=== PATIENT | male | born 1960 | race Native Hawaiian/Other Pacific Islander ===

== ENCOUNTER 2021-02-02 15:18 | Emergency (ER) | payer OTHER ==
[~2021-02-02] VITALS: Ht 165.1 cm; Wt 98.0 kg
[2021-02-02 15:18] VITALS: BP 141/87; TEMP 97.7
[~2021-02-02 15:18] MED LIST: BENZTROPINE2 MG PO; CHOL100034 PO; CLON0.1T16 PO; CLON0.5T36 PO; CLON1TAB18 PO; CYAN10009 IM; DIVA500T2 PO; DIVALPROEX500 MG PO; EDLUAR10 MG PO; HALO5TAB10 PO; HALOPERIDOL2 MG PO; INVEGA SUS234 MG/1.5 IM; MAGNSUS68 PO; RISP1TAB PO; RISPERDAL3 MG PO; TRAZODONE HYDRO50 MG PO; TYLENOL325 MG PO; VRAYLAR1.5 MG PO
[2021-02-02 15:41] LABS: PLATELET COUNT 265 K/uL (142-355)
[2021-02-02 15:53] LABS: POTASSIUM 3.6 mmol/L (3.6-5.2)
[2021-02-03] MEDS ORDERED: LORA2INJ21 INJ (08:26)
[2021-02-03] MEDS ORDERED: HALO5INJ3 IM (08:27)
[2021-02-03] MEDS ORDERED: CARBAMAZEPIN200 M1 PO (08:28)
[2021-02-03] MEDS ORDERED: SCOP1.5D TD (08:29)
[2021-02-03] MEDS ORDERED: DIVALPROEX500 M1 PO (08:31)
[2021-02-03] MEDS ORDERED: OLANZAPINE10 M2 PO (08:32)
== END 2021-02-02 16:20 | disposition still patient (30) ==
LOC: ED 15:18
PROVIDERS: Emergency Medicine
DX: F20.89 Other schizophrenia (principal); R45.1 Restlessness and agitation; I10 Essential (primary) hypertension; R56.9 Unspecified convulsions; Z11.52 Encounter for screening for COVID-19; Z04.6 Encounter for general psychiatric examination, requested by authority; F17.210 Nicotine dependence, cigarettes, uncomplicated
CPT/HCPCS: 80053; 81000; 85027; 87635; 93005; 99283; U0003

== ENCOUNTER 2021-05-26 12:55 | Emergency (ER) | payer OTHER ==
[~2021-05-26] VITALS: Ht 167.6 cm; Wt 96.6 kg
[~2021-05-26 12:55] MED LIST changes: +CARBAMAZEPIN200 M1 PO; +CLOZ100T PO; +DIVALPROEX500 M1 PO; +HALO5INJ3 IM; +LORA2INJ21 INJ; +OLANZAPINE10 M2 PO; +SCOP1.5D TD
[2021-05-26 13:05] VITALS: BP 105/58; TEMP 97.2
[2021-05-26 13:30] LABS: PLATELET COUNT 262 K/uL (142-355)
[2021-05-26 13:40] LABS: POTASSIUM 4.1 mmol/L (3.6-5.2)
[2021-05-26] MEDS ORDERED: CYAN10009 IM (14:28)
[2021-05-26] MEDS ORDERED: RISPERDAL4 MG PO (14:32)
[2021-05-26] MEDS ORDERED: DIPH50IN INJ (14:36)
[2021-05-26] MEDS ORDERED: HALO5INJ3 IM (14:37)
[2021-05-26] MEDS ORDERED: LORA2INJ21 INJ (14:38)
[2021-05-26] MEDS ORDERED: MILK OF MA400 MG/5 M PO (14:39)
[2021-05-26] MEDS ORDERED: SCOP1.5D TD (14:40)
== END 2021-05-26 14:09 | disposition still patient (30) ==
LOC: ED 13:05
PROVIDERS: Emergency Medicine
DX: F20.89 Other schizophrenia (principal); R45.1 Restlessness and agitation; I10 Essential (primary) hypertension; Z11.52 Encounter for screening for COVID-19; Z04.6 Encounter for general psychiatric examination, requested by authority; F17.210 Nicotine dependence, cigarettes, uncomplicated
CPT/HCPCS: 80053; 85027; 87635; 93005; 99283; U0003

== ENCOUNTER 2022-07-13 15:15 | Emergency (ER) | payer OTHER ==
[~2022-07-13] VITALS: Ht 167.6 cm; Wt 110.2 kg
[2022-07-13 15:15] VITALS: BP 146/78; TEMP 98.1
[~2022-07-13 15:15] MED LIST changes: +ARIPIPRAZOLE10 MG PO; +DIPH50IN INJ; +DIVALPROEX250 MG PO; +MILK OF MA400 MG/5 M PO; +OLAN10INJ IM; +OXCARBAZEPIN300 MG PO; +RISPERDAL4 MG PO; +TRAZODONE HYDR100 MG PO; -TRAZODONE HYDRO50 MG PO
[2022-07-13 15:53] LABS: PLATELET COUNT 271 K/uL (142-355)
[2022-07-13 15:54] LABS: POTASSIUM 4.2 mmol/L (3.6-5.2)
[2022-07-13] MEDS ORDERED: HALDOL DECANOATE IM (17:04)
[2022-07-13] MEDS ORDERED: INGREZZA40 MG PO (17:05)
[2022-07-13] MEDS ORDERED: METO25TA4 PO (17:06)
[2022-07-13] MEDS ORDERED: K-TABS10 MEQ PO (17:06)
[2022-07-13] MEDS ORDERED: CLON1TAB18 PO (17:11)
[2022-07-13] MEDS ORDERED: DIVALPROEX500 MG PO (17:12)
[2022-07-13] MEDS ORDERED: MEDR10TA4 PO (17:13)
[2022-07-13] MEDS ORDERED: OXCARBAZEPIN600 MG PO (17:14)
[2022-07-13] MEDS ORDERED: LORA2INJ21 INJ (17:15)
[2022-07-13] MEDS ORDERED: DIPH50IN INJ (17:16)
[2022-07-13] MEDS ORDERED: HALO5INJ3 IM (17:18)
== END 2022-07-13 16:20 | disposition still patient (30) ==
LOC: ED 15:15
PROVIDERS: Emergency Medicine
DX: R45.6 Violent behavior (principal); Z02.79 Encounter for issue of other medical certificate
CPT/HCPCS: 80053; 81002; 85027; 87635; 93005; 99283; U0003

== ENCOUNTER 2022-08-24 17:44 | Emergency (ER) | payer OTHER ==
[~2022-08-24] VITALS: Ht 188 cm; Wt 109.3 kg
[~2022-08-24 17:44] MED LIST changes: +ACET-206 PO; +HALDOL DECANOATE IM; +HALO50IN4 IM; +INGREZZA40 MG PO; +K-TABS10 MEQ PO; +MEDR10TA4 PO; +MEDR2.5T19 PO; +METO-837 PO; +METO25TA4 PO; +OLANZAPINE5 MG PO; +OXCARBAZEPIN600 MG PO; +POTA10CA3 PO; +TRAZ50TA36 PO
[2022-08-24 18:12] LABS: PLATELET COUNT 330 K/uL (142-355)
[2022-08-24 19:29] VITALS: BP 152/88; TEMP 98.1
[2022-08-24] MEDS ORDERED: CLON0.5T36 PO (21:13)
[2022-08-24] MEDS ORDERED: ZYPREXA ZYDI5 MG PO (21:16)
[2022-08-24] MEDS ORDERED: MILK OF MA400 MG/5 M PO (21:16)
[2022-08-31] MEDS ORDERED: CLON0.5T36 PO (11:27)
[2022-08-31] MEDS ORDERED: MEDROXYPR AC10 MG PO (11:28)
[2022-08-31] MEDS ORDERED: DIVALPROEX500 MG PO (11:28)
[2022-08-31] MEDS ORDERED: METO-837 PO (11:28)
[2022-08-31] MEDS ORDERED: POTA10CA3 PO (11:29)
[2022-08-31] MEDS ORDERED: OXCARBAZEPIN300 MG PO (11:29)
[2022-08-31] MEDS ORDERED: OLANZAPINE5 MG PO ×2 (11:29)
[2022-08-31] MEDS ORDERED: SCOP1.5D TD (11:30)
[2022-08-31] MEDS ORDERED: TRAZ50TA36 PO (11:30)
== END 2022-08-24 20:10 | disposition home or self-care (01) ==
LOC: ED 17:44
PROVIDERS: Family Medicine
DX: R45.6 Violent behavior (principal); Z02.79 Encounter for issue of other medical certificate
CPT/HCPCS: 36415; 80053; 81002; 85007; 85027; 87635; 93005; 99283; U0003